=== PATIENT | male | born 1970 | race Caucasian/White ===

== ENCOUNTER 2016-11-24 10:05 | Emergency (ER) | payer OTHER ==
[~2016-11-24 10:05] MED LIST: IBUPROFEN800 MG PO; LORTAB 7.5-5001 TAB PO; NAPROXEN PO; NO MEDICATIONS; ORUDIS75 M1 PO; PEN-VEE K PO; PENICILLIN V P500 MG PO; PREDNISONE PO; ROBAXIN500 MG PO; VOLTAREN50 MG PO
== END 2016-11-24 11:06 | disposition home or self-care (01) ==
LOC: SED 10:05
DX: G44.209 Tension-type headache, unspecified, not intractable (principal); F17.200 Nicotine dependence, unspecified, uncomplicated; Z90.49 Acquired absence of other specified parts of digestive tract
CPT/HCPCS: 96372; 99284; J1885